=== PATIENT | male | born 1955 | race Caucasian/White ===

== ENCOUNTER 2023-03-14 14:09 | Observation (INO) ==
[2023-03-14 14:33] VITALS: BMI 38.0
--- NOTE | 2023-03-14 14:33 | EKG ---
Test Reason : dizziness Blood Pressure : */* mmHG Vent. Rate : 63 BPM Atrial Rate : 70 BPM P-R Int : 154 ms QRS Dur : 112 ms QT Int : 430 ms P-R-T Axes : 24 -4 68 degrees QTc Int : 440 ms Normal sinus rhythm Incomplete right bundle branch block Borderline ECG When compared with ECG of 12-MAR-2022 17:38, Sinus rhythm has replaced Atrial fibrillation Vent. rate has decreased BY [address] no longer depressed in Inferior leads ST no longer depressed in Anterolateral leads Confirmed by Walter Weber ([id number]) on 03/14/2023 3:15:13 PM Referred By: Confirmed By: Walter Weber
[2023-03-14 14:39] LABS: BASOPHILS # (AUTO) 0.1 X10^3/uL (0.0-0.1); BASOPHILS % (AUTO) 0.6 % (0.2-1.0); EOSINOPHILS # (AUTO) 0.1 x10^3/uL (0.0-0.2); EOSINOPHILS % (AUTO) 0.8 % (0.9-2.9); HEMATOCRIT 49.1 % (42.0-54.0); HEMOGLOBIN 16.4 g/dL (13.5-18.0); LYMPHOCYTES # (AUTO) 2.9 X10^3/uL (1.3-2.9); LYMPHOCYTES % (AUTO) 27.4 % (21.0-51.0); MEAN CORPUSCULAR HEMOGLOBIN 30.8 pg (27.0-34.0); MEAN CORPUSCULAR HGB CONC 33.4 g/dL (33.0-35.0); MEAN CORPUSCULAR VOLUME 92.3 fL (80.0-100.0); MEAN PLATELET VOLUME 9.2 fL (7.4-11.0); MONOCYTES % (AUTO) 9.4 % (0.0-13.0); NEUTROPHILS # (AUTO) 6.5 x10^3/uL (2.2-4.8); NEUTROPHILS % (AUTO) 61.8 % (42.0-75.0); PLATELET COUNT 247 X10^3/uL (150.0-450.0); RED BLOOD COUNT 5.32 X10^6/uL (4.7-6.0); RED CELL DISTRIBUTION WIDTH 13.6 % (11.6-16.5); WHITE BLOOD COUNT 10.5 X10^3/uL (3.6-10.0)
--- NOTE | 2023-03-14 14:54 | DR.DIZZY ---
HPI Time seen Time Seen by Provider: 03/14/23 14:28 PCP Primary Care Physician: RODRI Complaint Chief Complaint Doctor Comments: 68-year-old male presents for evaluation. Having dizziness with standing and ambulation over the past week. [place] like he was going to pass out today. Denies true vertigo. Does not see the environment spinning around him. No associated headache, URI symptoms, no fever/chills. Has had minimal nausea at times, no vomiting or diarrhea. Gets abdominal cramping after eating frequently, has been going on longer than this current episode of feeling bad. Seen in primary care office twice past week, given steroid injections, placed on an antibiotic. Not feeling any better. Chief Complaint:: PATIENT C/O DIZZINESS. PATIENT STATES HE HAS SEEN DR MACE TWICE IN THE PASTS WEEK FOR DIZZINESS AND FLUID IN EARS. PATIENT STATES HE HAS TAKEN A STEROID DOSE PACK AND ANTIBIOTICS. PATIENT HAS ALSO BEEN ADMISNISTERED INJECTIONS AT OFFICE. PATIENT STATES HE IS JUST SO DIZZY. COVID-19 Coronavirus risk:travel/contact w/high risk person: No Has patient experienced Coronavirus symptoms: No Nurses Notes Reviewed Nurses Notes Review: Yes Source History Provided: Patient Mode of Arrival Mode of Arrival: Ambulatory Timing Onset of Chief Complaint: 03/08/23 Context Stroke Symptoms: Dizziness PMH PMH Past Medical History: Yes Past Medical History: Diabetes, GERD, Hypertension and Hypothyroidism Past Surgical History: Yes Past Surgical History Comment: ABLASION Family History History of Family Medical Conditions: Yes Family Medical History: Diabetes Mellitus, Coronary Artery Disease and Hypertension Social History Does patient currently use any type of tobacco product: Yes Have you used tobacco products in the last 12 months: Yes Type of Tobacco Use: CHEW Does any household member use tobacco: Yes Alcohol Use: None Do you use any recreational Drugs:: No Lives With: Family Lives Where: Home Travel Risk Coronavirus risk:travel/contact w/high risk person: No Has patient experienced Coronavirus symptoms: No Infectious screening In the last 2 months have you had wt loss of >10#?: NO Have you had fever, night sweats or hemotysis?: No Have you traveled outside the country in the last 6 months?: No Isolation: Standard ROS Review of Systems Constitutional: Weakness Eyes: No Symptoms Reported ENTM: No Symptoms Reported Respiratoy: No Symptoms Reported Cardiovascular: No Symptoms Reported Gastrointestinal/Abdominal: Abdominal Pain (after eating) Genitourinary: No Symptoms Reported Neurological: Weakness and Dizziness Musculoskeletal: No Symptoms Reported Integumentary: No Symptoms Reported Hematologic/Lymphatic: No Symptoms Reported All Other Systems: Reviewed and Negative PE Vital Signs Vitals: Vital Signs Temperature 98.7 F Pulse Rate [Standing] 69 Pulse Rate [Sitting] 64 Pulse Rate [Lying] 61 Pulse Rate 64 Pulse Rate 61 Pulse Rate 62 Pulse Rate 62 Pulse Rate 103 Pulse Rate 61 Pulse Rate 66 Pulse Rate 69 Pulse Rate 63 Pulse Rate 61 Pulse Rate 63 Pulse Rate 62 Pulse Rate 63 Pulse Rate 62 Pulse Rate 62 Pulse Rate 60 Respiratory Rate 18 Respiratory Rate 20 Respiratory Rate 22 Respiratory Rate 19 Respiratory Rate 21 Respiratory Rate 34 Respiratory Rate 21 Respiratory Rate 32 Respiratory Rate 17 Respiratory Rate 18 Respiratory Rate 20 Respiratory Rate 25 Respiratory Rate 25 Respiratory Rate 18 Respiratory Rate 16 Blood Pressure [Standing] 135/75 Blood Pressure [Sitting] 155/72 Blood Pressure [Lying] 155/92 Blood Pressure 133/81 Blood Pressure 135/73 Blood Pressure 135/75 Blood Pressure 155/72 Blood Pressure 155/92 Blood Pressure 137/91 Blood Pressure 143/84 Blood Pressure 156/76 Blood Pressure 192/87 O2 Sat by Pulse Oximetry 99 O2 Sat by Pulse Oximetry 99 O2 Sat by Pulse Oximetry 99 O2 Sat by Pulse Oximetry 100 O2 Sat by Pulse Oximetry 98 O2 Sat by Pulse Oximetry 98 O2 Sat by Pulse Oximetry 98 O2 Sat by Pulse Oximetry 99 O2 Sat by Pulse Oximetry 99 O2 Sat by Pulse Oximetry 98 O2 Sat by Pulse Oximetry 99 O2 Sat by Pulse Oximetry 99 O2 Sat by Pulse Oximetry 99 O2 Sat by Pulse Oximetry 99 O2 Sat by Pulse Oximetry 99 General General Appearance: Alert and In No Apparent Distress Eyes Eye exam: PERRL and EOMI; negative Nystagmus ENT ENT Exam: Normal Oropharynx, Mucous Membranes Moist and TM's Normal Bilaterally Neck Neck Exam: Normal Inspection, Full ROM and Other (No carotid bruits); negative Tenderness Respiratory Respiratory Exam: Normal Lung Sounds Bilat; negative Accessory Muscle Use or Respiratory Distress Cardiovascular Cardiovascular Exam: Regular Rate, Normal Rhythm and Normal Heart Sounds Abdominal Exam Abdominal Exam: Normal Bowel Sounds and Soft; negative Tenderness or Guarding Extremeties Extremities Exam: Normal Inspection and Full ROM; negative Edema Neurologic Neurological Exam: Alert, Oriented X3 and CN II-XII Intact; negative Motor Sensory Deficit Skin Skin Exam: Warm and Dry COURSE Treatment Treatment: Six 8-year-old male with recurrent dizziness over the past week, near syncopal this a.m.. He is not having vertigo, but true lightheadedness. Work up initiated. Labs are overall acceptable. CT of the brain shows a right frontal lesion, calcified, most likely meningioma, probably benign, no mass effect. He does have bilateral maxillary sinusitis. CTA of the aorta with runoff grossly normal to me, awaiting official reading. Discussed with his primary, Dr. Mace, will admit for observation tonight, attempt to get a brain MRI with contrast in the a.m.. Patient informed of his results, and is agreeable for admission. [facility] Labs Reviewed Laboratory Results Reviewed?: Yes 03/14/23 14:27 03/14/23 14: Laboratory: WBC 10.5 X10^3/uL (3.6-10.0) H 03/14/23 14: RBC 5.32 X10^6/uL (4.7-6.0) 03/14/23 14: Hgb 16.4 g/dL (13.5-18.0) 03/14/23 14: Hct 49.1 % (42.0-54.0) 03/14/23 14: MCV 92.3 fL (80.0-100.0) 03/14/23 14: MCH 30.8 pg (27.0-34.0) 03/14/23 14: MCHC 33.4 g/dL (33.0-35.0) 03/14/23 14: RDW 13.6 % (11.6-16.5) 03/14/23 14: Plt Count 247 X10^3/uL (150.0-450.0) 03/14/23 14: MPV 9.2 fL (7.4-11.0) 03/14/23 14: Neut % (Auto) 61.8 % (42.0-75.0) 03/14/23 14: Lymph % (Auto) 27.4 % (21.0-51.0) 03/14/23 14: [place] % (Auto) 9.4 % (0.0-13.0) 03/14/23 14: Eos % (Auto) 0.8 % (0.9-2.9) L 03/14/23 14:27 Baso % (Auto) 0.6 % (0.2-1.0) 03/14/23 14:27 Neut # (Auto) 6.5 x10^3/uL (2.2-4.8) H 03/14/23 14:27 Lymph # (Auto) 2.9 X10^3/uL (1.3-2.9) 03/14/23 14:27 [place] # (Auto) 1.0 x10^3/uL (0.3-0.8) H 03/14/23 14:27 Eos # (Auto) 0.1 x10^3/uL (0.0-0.2) 03/14/23 14:27 Baso # (Auto) 0.1 X10^3/uL (0.0-0.1) 03/14/23 14:27 Absolute Nucleated RBC 0.1 /100WBC 03/14/23 14:27 Sodium 141 mmol/L (136-145) 03/14/23 14:27 Corrected Sodium TNP 03/14/23 14:27 Potassium 3.8 mmol/L (3.5-5.1) 03/14/23 14:27 Chloride 105 mmol/L (98-107) 03/14/23 14:27 Carbon Dioxide 32.8 mmol/L (21-32) H 03/14/23 14:27 BUN 16 mg/dL (7-18) 03/14/23 14:27 Creatinine 1.18 mg/dL (0.70-1.30) 03/14/23 14:27 Est GFR (MDRD) Af Amer > 60 (>60) 03/14/23 14:27 Est GFR (MDRD) Non-Af > 60 (>60) 03/14/23 14:27 Glucose 86 mg/dL (65-99) 03/14/23 14:27 Calcium 8.1 mg/dL (8.5-10.1) L 03/14/23 14:27 Corrected Calcium TNP 03/14/23 14:27 Total Bilirubin 0.60 mg/dL (0.2-1.0) 03/14/23 14:27 AST 15 Units/L (15-37) 03/14/23 14:27 ALT 30 Units/L (12-78) 03/14/23 14:27 Alkaline Phosphatase 78 Units/L (46-116) 03/14/23 14:27 Creatine Kinase 91 Units/L (39-308) 03/14/23 14:27 Troponin I High Sens 59.1 ng/L (4.0-60.0) 03/14/23 14:27 Total Protein 7.0 g/dL (6.4-8.2) 03/14/23 14:27 Albumin 3.4 g/dL (3.4-5.0) 03/14/23 14:27 Globulin 3.6 g/dL (2.5-4.5) 03/14/23 14:27 Albumin/Globulin Ratio 0.9 Ratio (1.1-2.1) L 03/14/23 14:27 SARS CoV-2 RNA Rapid DEUCE Negative (NEGATIVE) 03/14/23 15:10 Mild anemia, otherwise acceptable. XRAY XRAY Interpreted by: Both X-ray Results: Chest x-ray without acute abnormalities EKG Rate: 63 [place]: Normal Rhythm: NSR Block: RBBB (incomplete) ST: Normal Opioid Opioid Risk Tool Age (Himanshu box if 16-45): No History of Preadolescent Sexual Abuse: No Total: 0 Total Score Risk Category: Low Risk Copyright: Lee PEREZ predicting aberrant behaviors Discharge Plan Diagnosis Discharge Problem: Near syncope, Acute maxillary sinusitis, Lesion of right frontal lobe of brain Discharge Plan Patient Disposition: 09 ADMITTED INPATIENT Condition: Stable Orders to Discharge Patient Discharge Orders: Transfer (Routine); Ordered 03/14/23 Ordered By: Valeriano Vargas
[2023-03-14 14:57] LABS: ALANINE AMINOTRANSFERASE 30 Units/L (12-78); ALBUMIN 3.4 g/dL (3.4-5.0); ALKALINE PHOSPHATASE 78 Units/L (46-116); ASPARTATE AMINO TRANSFERASE 15 Units/L (15-37); BLOOD UREA NITROGEN 16 mg/dL (7-18); CALCIUM 8.1 mg/dL (8.5-10.1); CARBON DIOXIDE 32.8 mmol/L (21-32); CHLORIDE 105 mmol/L (98-107); CREATINE KINASE 91 Units/L (39-308); CREATININE 1.18 mg/dL (0.70-1.30); GLUCOSE 86 mg/dL (65-99); POTASSIUM 3.8 mmol/L (3.5-5.1); SODIUM 141 mmol/L (136-145); eGFR NON BLACK RACES > 60 (>60)
--- NOTE | 2023-03-14 14:58 | RAD ---
EXAM:Portable chestHISTORY:SyncopeCOMPARISON: 3FINDINGS:Heart size is normal. Ale are normal. Left hemidiaphragm is mildly elevated. Lung owen are clear. No pleural effusions are identified. Bony thorax is unremarkable.IMPRESSION:No significant abnormality identifiedTHIS IS AN ELECTRONICALLY VERIFIED FINAL REPORT03/14/2023 2:54 PM - Electronically signed by Oscar Pemberton MD
[2023-03-14] MEDS ORDERED: OMNIPAQUE 350 mg/mL 100 mL BTL 100 ML ONE (15:41)
[2023-03-14] MEDS ORDERED: OMNIPAQUE 350 mg/mL 50 mL BTL 50 ML ONE (15:41)
--- NOTE | 2023-03-14 16:27 | CT ---
HISTORYDizziness.STUDYBRAIN W/O CONCOMPARISONNone.TECHNIQUEMultiple axial images of the brain were obtained from the skull base to the vertex without administration of IV contrast. Dose reduction techniques including Automated Exposure Control (AEC) and adjustment of mA and kV were utilized.FINDINGSNo acute intraparenchymal hemorrhage or mass can be identified. There is a 10 x 15 x 15 mm peripherally calcified extra-axial mass overlying the right frontal lobe high convexity which abuts the underlying brain parenchyma without significant mass effect. Findings are consistent with a probable meningioma. No extra-axial fluid collections are seen. No alteration in the attenuation of the brain parenchyma can be identified to suggest acute or subacute ischemic change. The ventricular system is symmetric and nondilated. There is fluid layering within the maxillary sinuses bilaterally. The sphenoid sinuses, ethmoid air cells and frontal sinuses are relatively clear. Mastoid air cells are clear bilaterally. The extracranial structures are grossly unremarkable.IMPRESSION1. No acute intracranial abnormality.2. Fluid is present within the maxillary sinuses bilaterally. Clinical correlation for acute and/or chronic sinusitis requested.3. Probable right frontal meningioma as above.Electronically signed by: MALINA ORNELAS (Mar 14, 2023 16:26:13)
--- NOTE | 2023-03-14 18:13 | CT ---
PROCEDURE: CTA Abdomen and Pelvis with Bilateral Iliofemoral Runoff .HISTORY: Dizziness when standing.TECHNIQUE: Axial images were performed through the abdomen and pelvis with bilateral lower extremity runoff before and during the administration of IV contrast with multiplanar reformations . 3D and MIPS reconstructions were performed and reviewed. Oral contrast was not administered . Dose reduction techniques including Automated Exposure Control (AEC) and adjustment of mA and kV were utilized .COMPARISON: None .TECHNICAL QUALITY:Satisfactory .FINDINGS:Mildly elevated left hemidiaphragm. Mild linear scar versus discoid atelectasis left lung base.Liver, spleen, adrenals, and pancreas show no significant abnormality.Kidneys show normal enhancement with no mass or obstruction.Normal biliary tract.No ascites or pneumoperitoneum.No lymphadenopathy.No bowel obstruction or inflammation and normal appendix.Pelvis shows no masses or free fluid. Moderate prostatomegaly. Normal urinary bladder.No acute bony abnormality.VascularThoracic aorta shows mild atherosclerotic calcifications distally. No aneurysm or dissection. Major branches of the abdominal aorta show some minimal atherosclerosis at the origin with with normal enhancement remainder of the vessels.Iliofemoral runoff through the pelvis shows no significant abnormality.Right lower extremity shows normal appearing femoral arteries with no narrowing or occlusion.Popliteal artery is unremarkable. Mid and distal trifurcation vessels or unopacified with contrast related to the timing of the study with the injection. No significant abnormality proximal trifurcation vessels on the right.Left femoral arteries show no significant abnormality.Left popliteal artery shows no abnormality.Proximal visualized trifurcation vessels are unremarkable. Mid distal trifurcation vessels on the left are unopacified with contrast related to the timing of the study.IMPRESSION:1. No significant vascular abnormality identified. The mid distal trifurcation vessels were unopacified with contrast related to timing of the study.2. Mildly elevated left hemidiaphragm.3. Moderate prostatomegaly.4. No other significant abnormality identified.Electronically signed by: Laureano Morris (Mar 14, 2023 18:11:27)
[2023-03-14] MEDS ORDERED: CONSULT PHARMACY - POTASSIUM & MAGNESIUM XX SCH (18:28)
[2023-03-14] MEDS: D5 1/2 NS 1,000 ML 1,000 ML IV SCH (20:28)
[2023-03-14] MEDS: ZOSYN VIAL 3.375 GRAMS 3.375 G in NS 100 ML IV 100 ML IV SCH (20:42)
[2023-03-14] MEDS ORDERED: K-DUR TAB 20 MEQ PO ONE (21:00)
[2023-03-15] MEDS: D5 1/2 NS 1,000 ML 1,000 ML IV SCH ×4 (03:31→10:47)
[2023-03-15 05:38] VITALS: RESP 20
[2023-03-15 06:14] LABS: BASOPHILS # (AUTO) 0.1 X10^3/uL (0.0-0.1); BASOPHILS % (AUTO) 0.9 % (0.2-1.0); EOSINOPHILS # (AUTO) 0.2 x10^3/uL (0.0-0.2); EOSINOPHILS % (AUTO) 2.1 % (0.9-2.9); HEMATOCRIT 44.9 % (42.0-54.0); HEMOGLOBIN 15.2 g/dL (13.5-18.0); LYMPHOCYTES # (AUTO) 4.2 X10^3/uL (1.3-2.9); LYMPHOCYTES % (AUTO) 40.1 % (21.0-51.0); MEAN CORPUSCULAR HEMOGLOBIN 31.2 pg (27.0-34.0); MEAN CORPUSCULAR HGB CONC 33.9 g/dL (33.0-35.0); MEAN PLATELET VOLUME 9.2 fL (7.4-11.0); MONOCYTES # (AUTO) 1.1 x10^3/uL (0.3-0.8); MONOCYTES % (AUTO) 10.8 % (0.0-13.0); NEUTROPHILS # (AUTO) 4.8 x10^3/uL (2.2-4.8); NEUTROPHILS % (AUTO) 46.1 % (42.0-75.0); PLATELET COUNT 213 X10^3/uL (150.0-450.0); RED BLOOD COUNT 4.88 X10^6/uL (4.7-6.0); RED CELL DISTRIBUTION WIDTH 13.4 % (11.6-16.5); WHITE BLOOD COUNT 10.4 X10^3/uL (3.6-10.0)
[2023-03-15] MEDS: ZOSYN VIAL 3.375 GRAMS 3.375 G in NS 100 ML IV 100 ML IV SCH (06:27)
[2023-03-15 06:32] LABS: ALANINE AMINOTRANSFERASE 26 Units/L (12-78); ALBUMIN 2.8 g/dL (3.4-5.0); ALKALINE PHOSPHATASE 68 Units/L (46-116); ASPARTATE AMINO TRANSFERASE 15 Units/L (15-37); BLOOD UREA NITROGEN 15 mg/dL (7-18); CALCIUM 7.5 mg/dL (8.5-10.1); CARBON DIOXIDE 28.4 mmol/L (21-32); CHLORIDE 107 mmol/L (98-107); COR CA(FOR HYPOALB) 8.5 mg/dL (8.5-10.1); GLUCOSE 84 mg/dL (65-99); POTASSIUM 3.6 mmol/L (3.5-5.1); SODIUM 143 mmol/L (136-145); TOTAL PROTEIN 5.9 g/dL (6.4-8.2); eGFR NON BLACK RACES > 60 (>60)
[2023-03-15] MEDS ORDERED: CLARITIN PO SCH (09:56)
[2023-03-15] MEDS ORDERED: FLONASE NASAL SPRAY ENOSTRIL SCH (10:00)
[2023-03-15] MEDS ORDERED: VALIUM INJ IVP ONE (11:35)
--- NOTE | 2023-03-15 12:17 | MRI ---
EXAM:BRAIN W/O CONHISTORY:Right frontal lesion/Dizziness ;COMPARISON:CT head from day prior.TECHNIQUE:Multiplanar multi-sequence MRI of the brain was obtained utilizing standard departmental protocol. Sagittal and axial T1 weighted images were obtained. Axial T2 and flair weighted images were performed as well. Axial diffusion weighted and ADC trace mapping was performed.FINDINGS:Mild motion artifact and suboptimal image noise on the axial T2 sequence. Lack of contrast limits evaluation for mass. Mildly suboptimal noise on the sagittal T1 sequence.Diffusion imaging: Normal, no acute infarct.Susceptibility weighted imaging: No abnormal susceptibility artifact.Brain volume: Appropriate for age.Ventricles and basal cisterns: FLAIR bright signal in the basal cisterns is nonspecifc but often due to technical artifact. No abnormal signal in these locations on other pulse sequences. No hydrocephalus.Extra-axial spaces: No extra-axial collection. Right far frontal convexity extra-axial mass is T2 mildly hyperintense and FLAIR mildly hyperintense white matter. The mass is T1 isointense image 9 series 601 and measures 1.8 cm craniocaudal. The mass measures about 1.5 cm mediolateral and 1.1 cm AP on image 12 series 701.Cerebral parenchyma: No mass, hematoma, or mass effect.Pituitary and other sagittal midline structures: Normal.Visualized orbits: Normal.Paranasal sinuses and mastoid air cells: There are small air-fluid levels in the maxillary sinuses. Mild ethmoid air cell mucosal thickening.Bones: Intact.Other: None.IMPRESSION:Far right frontal convexity extra-axial mass with signal characteristics on noncontrast exam consistent with a meningioma. Consider addition of IV contrast, which typically shows avid enhancement.Mild bilateral maxillary sinusitis.THIS IS AN ELECTRONICALLY VERIFIED FINAL REPORT03/15/2023 12:13 PM - Electronically signed by Dago Harris MD
[2023-03-15 12:40] VITALS: BP 141/81; PULSE 73; TEMP 98.1; O2SAT 98
--- NOTE | 2023-03-28 13:36 | DR.CARTERS ---
Short Stay Summary - Admission Date Date of Admission: 03/14/22 - Discharge Date Discharge Date: 03/15/22 - Admission Diagnoses (1) Near syncope Status: Acute (2) Acute maxillary sinusitis Status: Acute (3) Meningioma Status: Acute - Discharge Medications Discharge Medications: Home Medication List apixaban 5 mg tablet (Eliquis) 5 mg PO BID 03/14/23 [History] meclizine 25 mg tablet 25 mg PO .EVENING 03/14/23 [History] azelastine 205.5 mcg (0.15 %) nasal spray (Astepro Allergy) 1 spray intranasal BID #1 EACH 03/15/23 [Rx] fexofenadine 60 mg-pseudoephedrine ER 120 mg tablet,ext.release,12 hr (Miguel Ángel-D 12 Hour) 1 tab PO QAM #30 tabs 03/15/23 [Rx] fluticasone propionate 50 mcg/actuation nasal spray,suspension 1 spray intranasal BID #1 g 03/15/23 [Rx] montelukast 10 mg tablet (Singulair) 10 mg PO QHS #30 tabs 03/15/23 [Rx] Prescriptions: azelastine [Astepro Allergy] Abad Saleh fexofenadine-pseudoephedrine [Miguel Ángel-D 12 Hour] Abad Saleh fluticasone propionate Abad Saleh montelukast [Singulair] Abad Saleh - Hospital Course Hospital Course: IS A 68 YEAR OLD PATIENT OF OURS. HE PRESENTED TO THE ER WITH COMPLAINTS OF DIZZINESS WITH STANDING AND WITH AMBULATION FOR THE PAST WEEK. HE REPORTED FEELING LIKE HE MAY PASS OUT PRIOR TO ARRIVING. HE DENIED SPINNING OR TRUE VERTIGO. HE HAD NO ASSOCIATED HEADACHE, URI SYMPTOMS, OR FEVER/CHILLS. HE HAS HAD MINIMAL NAUSEA AT NIGHT BUT NO VOMITING OR DIARRHEA. HE ADMITTED TO ABDOMINAL CRAMPING AFTER EATING FREQUENTLY. HE WAS GIVEN ROCEPHIN AND SOLU- MEDROL IN THE OFFICE LAST WEEK FOR SEROUS OTITIS. HE STARTED TAKING A MEDROL DOSEPACK AND ORAL ANTIBIOTICS WELL. HIS MEDICAL HX INCLUDES: DM II, GERD, HTN, HYPOTHYROIDISM, ABLASION. ON ARRIVAL, HIS VITALS WERE: 98.7-60-16-99%-192/87. LABS WERE OBTAINED. WBC 10.5, RBC 5.32, HGB 16.4, HCT 49.1, PLT COUNT 247, SODIUM 141, POTASSIUM 3.8, CHLORIDE 105, CARBON DIOXIDE 32.8, BUN 16, CREATININE 1.18, GLUCOSE 86, CALCIUM 8.1, TOTAL BILI 0.60, AST 15, ALT 30, ALK PHOS 78, CREATINE KINASE 91, TROPONIN 59.1, TOTAL PROTEIN 7.0, ALBUMIN 3.4. COVID-19 NEGATIVE. EKG REVEALED NORMAL SINUS RHYTHM WITH HR 63 BPM. A CHEST XRAY WAS OBTAINED AND REVEALED: NO SIGNIFICANT ABNORMALITY IDENTIFIED. CT OF THE A[place] WITH RUNOFF REVEALED: 1. No significant vascular abnormality identified. The mid distal trifurcation vessels were unopacified with contrast related to timing of the study. 2. Mildly elevated left hemidiaphragm. 3. Moderate prostatomegaly. 4. No other significant abnormality identified. A BRAIN CT WITHOUT CONTRAST WAS OBTAINED AND REVEALED: No acute intraparenchymal hemorrhage or mass can be identified. There is a 10 x 15 x 15 mm peripherally calcified extra-axial mass overlying the right frontal lobe high convexity which abuts the underlying brain parenchyma without significant mass effect. Findings are consistent with a probable meningioma. No extra-axial fluid collections are seen. No alteration in the attenuation of the brain parenchyma can be identified to suggest acute or subacute ischemic change. The ventricular system is symmetric and nondilated. There is fluid layering within the maxillary sinuses bilaterally. The sphenoid sinuses, ethmoid air cells and frontal sinuses are relatively clear. Mastoid air cells are clear bilaterally. The extracranial structures are grossly unremarkable. IN THE ER, HE WAS GIVEN K-DUR 20MEQ PO X 1, ZOSYN 3.375G IV X 1. HE WAS ADMITTED TO THE HOSPTIAL OBSERVATION STATUS FOR FURTHER EVALUATION AND TREATMENT OF NEAR SYNCOPE, MAXILLARY SINUSITIS, RIGHT FRONTAL BRAIN LESION. HE WAS STARTED ON D5NS AT 125 ML/HR, ZOSYN 3.375G IV TID. WE PLANED TO OBTAIN A BRAIN MRI WITHOUT CONTRAST. OTHERWISE, WE PLANNED FOLLOW UP WITH AM LABS AND CONTINUE TO MONITOR. ON THE MORNING FOLLOWING ADMISSION, PATIENT IS ALERT AND ORIENTED, SITTING UP IN BED ON MORNING ROUNDS. HE COMPLAINS OF NASAL DRAINAGE THIS MORNING, BUT DENIES DIZZINESS AT THE PRESENT TIME. ON EXAMINATION, HEART IS REGULAR IN RATE AND RHYTHM. BILATERAL LUNGS ARE NOTED WITH DIMINISHED LUNG SOUNDS THROUGHOUT. ABDOMEN IS ROUND, SOFT, AND NON-TENDER WITH NORMAL BOWEL SOUNDS NOTED IN ALL QUADRANTS. GOOD RANGE OF MOTION NOTED TO UPPER AND LOWER EXTREMITIES WITH NO EDEMA NOTED. HIS VITALS THIS MORNING ARE: 98.1-73-20-98%-141/81. LABS WERE OBTA INED AND WERE STABLE. A BRAIN MRI WITHOUT CONTRAST WAS OBTAINED AND REVEALED: Far right frontal convexity extra-axial mass with signal characteristics on noncontrast exam consistent with a meningioma. Consider addition of IV contrast, which typically shows avid enhancement. Mild bilateral maxillary sinusitis. WE DISCUSSED MRI FINDINGS WITH PATIENT AND WILL REFER HIM TO DR.LOUIS JORGE FOR FURTHER EVALUATION OF MENINGIOMA. WE PLANNED FOR DISCHARGE. INSTRUCTIONS FOR MEDICATIONS AND FOLLOW-UP WERE DISCUSSED WITH PATIENT. HE VERBALIZED UNDERSTANDING OF ALL ORDERS. HE WAS GIVEN NEW PRESCRIPTIONS FOR AZELASTINE 1 SPRAY TO EACH NOSTRIL BID, MIGUEL ÁNGEL D DAILY, FLONASE 1 SPRAY TO EACH NOSTRIL BID, AND MONTELUKAST 10MG HS. HE IS INSTRUCTED TO FOLLOW UP IN THE OFFICE ON 03/21/23. PATIENT DISCHARGED HOME WITH FAMILY IN STABLE CONDITION. TIME SPENT ON CLINICAL ASSESSMENT, REVIEWING LABS AND IMAGING, DECISION MAKING, DISCHARGE INSTRUCTIONS, PREPARING DISCHARGE PAPERS, AND DOCUMENTATION GREATER THAN 75 M INUTES. - Discharge Plan Disposition: 01 HOME, SELF-CARE Condition: Stable Prescriptions: azelastine [Astepro Allergy] 1 spray intranasal BID #1 EACH fexofenadine-pseudoephedrine [Miguel Ángel-D 12 Hour] 1 tab PO QAM #30 tabs fluticasone propionate 1 spray intranasal BID #1 g montelukast [Singulair] 10 mg PO QHS #30 tabs - Follow up/Referrals Follow up/Referrals: Abad Saleh [Primary Care Provider] - 03/21/23 12:50 pm TEJAL JORGE [REFERRING] - 1 WEEK (Office will call patient with appoitment) - Instructions Instructions: Near-Syncope, [id number], Syncope, Adult, [id number] Additional Instructions: DIET TOLERATED. ACTIVITY TOLERATED. Forms: Excuse From Work or School, Post Hospital Follow Up Care
== END 2023-03-15 13:10 | disposition home or self-care (01) ==
LOC: ER 14:09 → MED/SURG 14:09
PROVIDERS: ADMIT Internal Medicine; ATTEND Internal Medicine
DX: Z79.01 Long term (current) use of anticoagulants; R42 Dizziness and giddiness; G93.89 Other specified disorders of brain; J01.00 Acute maxillary sinusitis, unspecified; R55 Syncope and collapse; Z20.822 Contact with and (suspected) exposure to COVID-19; D32.9 Benign neoplasm of meninges, unspecified